=== PATIENT | female | born 1990 | race American Indian/Alaskan Native ===

== ENCOUNTER 2016-10-09 12:34 | Inpatient (IN) | payer MEDICAID ==
[2016-10-09] MEDS ORDERED: PEPCID IV ONE (12:45)
[2016-10-09] MEDS ORDERED: REGLAN IV ONE (12:45)
[2016-10-09] MEDS ORDERED: BICITRA PO ONE (12:45)
[2016-10-09] MEDS ORDERED: EMLA TP PRN (12:45)
--- NOTE | 2016-10-09 12:54 | History and Physical Report ---
History of Present Illness Date of examination: 10/09/16 Date of admission: 10/09/16 12:34 Chief complaint: pt presents for repeat c/s at 38 weeks secondary to oligo Past History Past Medical History: other (obesity) Past Surgical History: section (x1) [employer]INE[employer] History: herpes Family/Genetic History: diabetes, hypertension, stroke Social history: smoking (current use) - Obstetrical History Expected Date of Delivery: 10/22/16 Actual Gestation: 38 Week(s) 1 Day(s) : 2 Para: 1 Number of Living Children: 0 (hild of sids) Medications and Allergies Allergies Allergy/AdvReac Type Severity Reaction Status Date / Time latex Allergy Rash Verified 05/07/15 11:56 Home Medications Medication Instructions Recorded Confirmed Last Taken Type Pnv with Ca,No.71/Iron/FA 1 caplet PO DAILY 05/10/15 05/10/15 05/06/15 10:00 History [Vol-Plus Tablet] Ibuprofen [Motrin 800 MG tab] 800 mg PO Q6H PRN #30 tablet 05/11/15 Unknown Rx oxyCODONE /ACETAMINOPHEN [Percocet 2 tab PO Q4H PRN #30 tablet 05/11/15 Unknown Rx 5/325 mg] Active Meds: Active Medications Citric Acid/Sodium Citrate (Bicitra) 30 ml PO ONCE ONE Stop: 10/09/16 12:46 Famotidine (Pepcid) 20 mg IV ONCE ONE Stop: 10/09/16 12:46 Cefazolin Sodium (Ancef/Sterile Water 2 Gm/20 Ml) 2 gm in 20 mls @ 80 mls/hr IV PREOP NR PRN Reason: Protocol Lactated Ringer's (Lactated Ringers) 1,000 mls @ 2,250 mls/hr IV PREOP LA NENA Stop: 10/10/16 13:27 Oxytocin/Sodium Chloride (Pitocin/Ns 20 Unit/1000ml Drip) 20 units in 1,000 mls @ 0 mls/hr IV TITR LA NENA PRN Reason: As Directed Lidocaine/Prilocaine (Emla) 1 applic TP ONCE PRN PRN Reason: for muñiz catheter insertion Metoclopramide HCl (Reglan) 10 mg IV ONCE ONE Stop: 10/09/16 12:46 Review of Systems All systems: negative - Physical Exam Breasts: Positive: deferred Cardiovascular: Regular rate, Normal S1, Normal S2 Abdomen: Positive: normal appearance, soft, normal bowel sounds. Negative: distention, tenderness Vulva: both: normal Vagina: Positive: normal moisture. Negative: discharge Cervix: Negative: lesion, discharge Uterus: Positive: normal size, normal contour Adnexa: both: normal Anus/Rectum: Positive: normal perianal skin, heme negative. Negative: rectal mass, hemorrhoids Extremities: Deep Tendon Reflex Grade: Normal +2 - Obstetrical FHR: category 1 Uterine Contraction Monitor Mode: External Cervical Dilatation: 0 Cervical Effacement Percentage: 0 station: -3 Uterine Contraction Pattern: Absent Results All other labs normal. Assessment and Plan iup at term, oligo, previous c/s x 1, hx of HSV, previous child of SIDS Plan- prepare for repeat c/s
[2016-10-09] MEDS ORDERED: ANCEF/STERILE WATER 2 GM/20 ML 2 GM/20 ML SYRINGE IV NR (13:00)
[2016-10-09] MEDS ORDERED: PITOCin/NS 20 UNIT/1000ML DRIP 20 UNITS/1,000 ML BAG IV SCH ×2 (13:00→18:00)
[2016-10-09] MEDS ORDERED: LACTATED RINGERS 1,000 ML IV SCH (13:00)
--- NOTE | 2016-10-09 14:19 | Anesthesia Consultation ---
Anesthesia Consult and Med Hx Date of service: 10/09/16 - Airway Anesthetic Teeth Evaluation: Poor (broken tooth #27) ROM Head & Neck: Adequate Mental/Hyoid Distance: Adequate Mallampati Class: Class II Intubation Access Assessment: Probably Good - Pre-Operative Health Status ASA Pre-Surgery Classification: ASA3 Proposed Anesthetic Plan: Epidural, Spinal - Pulmonary Hx Asthma: No COPD: No Hx Pneumonia: No - Cardiovascular System Hx Hypertension: No - Central Nervous System Hx Seizures: No Hx Psychiatric Problems: No - Endocrine Hx Renal Disease: No Hx End Stage Renal Disease: No Hx Hypothyroidism: No Hx Hyperthyroidism: No - Hematic Hx Anemia: No Hx Sickle Cell Disease: No - Other Systems Hx Alcohol Use: No Hx Obesity: Yes (morbid obesity BMI 47.8)
[2016-10-09] MEDS ORDERED: BENADRYL IV PRN (14:20)
[2016-10-09] MEDS ORDERED: NARCAN 0.4 MG/1 ML IV PRN ×2 (14:20→17:43)
[2016-10-09] MEDS ORDERED: DILAUDID IV PRN (14:20)
[2016-10-09] MEDS ORDERED: ZOFRAN IV PRN ×2 (14:20→17:43)
[2016-10-09] MEDS ORDERED: PHENERGAN PR PRN (14:20)
[2016-10-09] MEDS ORDERED: PHENERGAN PO PRN (14:20)
--- NOTE | 2016-10-09 14:20 | Anesthesia Day of Surgery ---
Anesthesia Day of Surgery - Day of Surgery Patient Examined: Yes Patient H&P Reviewed: Yes Patient is NPO: Yes (had cup of coffee @9:45)
[2016-10-09] MEDS ORDERED: TORADOL IV PRN (14:21)
[2016-10-09 14:47] LABS: Basophils % (Auto) 0.6 % (0.0-1.8); Eosinophils % (Auto) 1.5 % (0.0-4.3); Hematocrit 36.7 % (30.3-42.9); Mean Corpuscular HGB Conc 33 % (30-34); Mean Corpuscular Hemoglobin 28 pg (28-32); Mean Corpuscular Volume 85 fl (79-97); Platelet Count 408 K/mm3 (140-440); Red Blood Count 4.34 M/mm3 (3.65-5.03); Red Cell Distribution Width 14.2 % (13.2-15.2); White Blood Count 17.5 K/mm3 (4.5-11.0)
[2016-10-09] MEDS ORDERED: SODIUM CHLORIDE FLUSH SYRINGE 10 ML IV NR (15:00)
[2016-10-09] MEDS ORDERED: NACL 0.9% IR ONE (15:20)
[2016-10-09] MEDS ORDERED: WATER FOR IRRIG STERILE IR ONE (15:20)
[2016-10-09] MEDS ORDERED: MORPHINE ONE (15:21)
[2016-10-09] MEDS ORDERED: NACL 0.9% 1000 ML 1,000 ML ONE (16:01)
[2016-10-09] MEDS ORDERED: NEO SYNEPHRINE/NS Syringe(OR USE) IV ONE ×2 (16:21)
[2016-10-09] MEDS ORDERED: ZOFRAN ONE (16:31)
--- NOTE | 2016-10-09 17:38 | Procedure Note ---
OB Delivery Note - Delivery Date of Delivery: 10/09/16 Surgeon: CRISTEL RUSSELL Estimated blood loss: other (600ml) - Infant A at 1 minute: 8 at 5 minutes: 9 Gender: Female (5-12, infant and mother tolerated the procedure well.)
[2016-10-09] MEDS ORDERED: TUCKS PAD TP PRN (17:43)
[2016-10-09] MEDS ORDERED: LANSINOH TP PRN (17:43)
[2016-10-09] MEDS ORDERED: MYLICON PO PRN (17:43)
[2016-10-09] MEDS ORDERED: MILK OF MAGNESIA PO PRN (17:43)
--- NOTE | 2016-10-09 17:43 | Operative Report ---
Operative Report Operative Report: Preoperative diagnoses- Intrauterine at 38 + weeks, oligo, previous c/ s x1 Postoperative diagnoses- same Procedure- Repeat low segment transverse section Surgeon- Dr. Tory Samaniego-[place] Anesthesia- epidural] Findings- live female wt 5-12, apgars 8 & 9, loose nuchal cord Estimated blood loss- 600ml Complications- none Instrument count- Correct Pathology specimens- Placenta- to pathology Patient was taken to the OR. Spinal/epidural anesthesia was instituted. Patient was then placed in the dorsolithotomy position and Clifton catheter was placed. Patient was then returned to the supine position and prepped and draped in usual sterile fashion. Level of anesthesia was checked and found to be adequate. Pfannenstiel skin incision was made. The incision was extended through the subcutaneous tissues to the fascia. Which was incised transversely using Mayos and pickups with teeth. The fascia was from the underlying muscle using Kochers and Bovie cautery. The rectus muscle was then in the midline. The peritoneum was visualized, grasped with hemostats and opened using the Metzenbaum scissors. Upon entering the peritoneal cavity an blessing retractor was placed appropriately. A curvilinear incision was made with Metzenbaum scissors and a smooth pickup. A bladder flap was developed, a curvilinear incision was made in the lower uterine segment using a scalpel. The uterine cavity was entered bluntly with the surgeon's finger and the incision was enlarged. The Head of the infant was delivered . The mouth and nose were suctioned and the remainder of the body was delivered . The cord was doubly clamped and cut . was given to the waiting team. The cord blood was obtained. The placenta was then delivered manually. The uterus is cleaned with a moist wet lap tape. The first layer of the uterus is closed with 0 Vicryl running interlocking stitch. The second layer of the uterus was closed with a 0 Vicryl horizontal imbricating stitch. The pelvic gutters were cleaned . Next the adnexa were examined and found to be normal. Next the fascia was closed with 0 Vicryl running suture. Next the subcutaneous tissue was reapproximated with 3-0 Vicryl running suture. The skin was reapproximated with a 4-0 Vicryl subcuticular stitch. Mastisol and Steri-Strips were placed . A pressure dressing was applied. The patient was transferred to recovery room in stable condition.
[2016-10-09] MEDS ORDERED: D5LR 1,000 ML IV SCH (18:00)
[2016-10-09] MEDS ORDERED: SODIUM CHLORIDE FLUSH SYRINGE 10 ML IV SCH (18:00)
--- NOTE | 2016-10-09 19:27 | Post Anesthesia Evaluation ---
- Post Anesthesia Evaluation Patient Participated: Yes Airway Patent: Yes Stable Respiratory Function: Yes Nausea/Vomiting: No Temp > 96.8F: Yes Pain Manageable: Yes Adequeate Hydration: Yes Anesthesia Complications: No Block Receding Appropriately: Not Applicable Patient on Ventilator: No
[2016-10-09] MEDS: ANCEF/NS 1 GM/50 ML 1 GM/50 ML BAG IV SCH (22:10)
[2016-10-09] MEDS: FEOSOL PO SCH (22:25)
[2016-10-10] MEDS: ANCEF/NS 1 GM/50 ML 1 GM/50 ML BAG IV SCH (05:28)
--- NOTE | 2016-10-10 06:50 | Progress Note ---
Assessment and Plan pod 1 s/p repeat c/s. doing well. encourage ambulation Subjective - Subjective Date of service: 10/10/16 Principal diagnosis: pod 1 s/p repeat c/s Interval history: routine post op care Patient reports: appetite normal, voiding normally, pain well controlled : doing well Objective - Vital Signs Latest vital signs: Vital Signs Temp Pulse Pulse Resp BP BP Pulse Ox 10/10/16 04:00 98.6 F 79 22 104/69 10/10/16 00:00 98.6 F 88 22 114/76 10/09/16 22:25 18 10/09/16 18:10 97.8 F 59 L 12 99/52 99 10/09/16 17:51 72 12 108/53 99 10/09/16 17:35 72 14 107/58 100 10/09/16 17:30 69 10 L 111/56 98 10/09/16 17:25 74 12 106/53 98 10/09/16 17:23 98.2 F 66 12 102/56 100 10/09/16 13:14 87 99 10/09/16 13:13 76 120/59 10/09/16 07:35 98.6 F 62 24 96/47 Intake and Output 10/09/16 10/09/16 10/10/16 14:59 22:59 06:59 Intake Total 6250 2100 Output Total 500 800 Balance 5750 1300 Intake: IV 6250 750 ANCEF/NS 1 GM/50 ML 1 gm 100 In 50 ml @ 100 mls/hr IV Q8H LA NENA Rx#:[id number] D5lr 1,000 ml @ 125 mls/ 1500 750 hr IV DIRECT LA NENA Rx#: [id number] PITOCin/NS 20 UNIT/1000ML 2250 DRIP 20 units In 1,000 ml @ 250 mls/hr IV TITR LA NENA Rx#:[id number] Oral 600 Intake, Free Water 750 Output: Urine 500 800 Indwelling Catheter 800 Other: Total, Intake Amount 300 Total, Output Amount 800 Weight 134.263 kg Estimated Blood Loss 600 Patient Weight 10/10/16 06:59 Weight 134.263 kg - Exam Breasts: Present: deferred Cardiovascular: Present: Regular rate, Normal S1, Normal S2 Lungs: Present: Clear to auscultation Abdomen: Present: normal appearance, soft Vulva: both: normal Uterus: Present: normal, firm Extremities: Present: normal Incision: Present: normal, dry, intact - Labs Labs: Abnormal lab results 10/09/16 Range/Units 13:15 WBC 17.5 H (4.5-11.0) K/mm3 [place] # 1.1 H (0.0-0.8) K/mm3 Seg Neutrophils % 74.1 H (40.0-70.0) % Seg Neutrophils # 12.9 H (1.8-7.7) K/mm3
[2016-10-10 07:00] LABS: Hemoglobin 10.2 gm/dl (10.1-14.3)
[2016-10-10] MEDS: MOTRIN PO PRN (08:35)
[2016-10-10] MEDS: PERCOCET 5/325 PO PRN ×3 (08:35→21:38)
[2016-10-10] MEDS: FEOSOL PO SCH ×2 (08:36→21:38)
--- NOTE | 2016-10-10 10:52 | Progress Note ---
Subjective Date of service: 10/10/16 Principal diagnosis: pod 1 s/p repeat c/s Interval history: 1st POD after Patient is comfortable. Pain is very well under control. Ambulated well. No residual neurological deficit. No nausea or vomiting. No anesthesia complications Objective - Constitutional Vitals: Vital Signs - 12hr 10/10/16 10/10/16 10/10/16 00:00 04:00 08:15 Temperature 98.6 F 98.6 F 98.0 F Pulse Rate [ 88 79 64 Left] Respiratory 22 22 20 Rate Blood Pressure 114/76 104/69 98/48 [Left Arm] - Labs CBC & Chem 7: 10/10/16 06:42 Labs: Abnormal lab results 10/09/16 Range/Units 13:15 WBC 17.5 H (4.5-11.0) K/mm3 [place] # 1.1 H (0.0-0.8) K/mm3 Seg Neutrophils % 74.1 H (40.0-70.0) % Seg Neutrophils # 12.9 H (1.8-7.7) K/mm3
[2016-10-10] MEDS ORDERED: M-M-R II VACCINE SUB-Q ONE (17:45)
[2016-10-11] MEDS: PERCOCET 5/325 PO PRN (01:28)
--- NOTE | 2016-10-11 09:13 | Progress Note ---
Assessment and Plan POD 2 s/p repeat c/s . Doing well. Will D/c home tomorrow Subjective - Subjective Date of service: 10/11/16 Principal diagnosis: pod 2 s/p repeat c/s Interval history: routine post op care Patient reports: appetite normal, voiding normally, pain well controlled [place]: doing well Objective - Vital Signs Latest vital signs: Vital Signs Temp Pulse Resp BP 10/10/16 23:25 98.6 F 88 22 109/68 10/10/16 19:45 98.6 F 82 16 104/69 10/10/16 16:05 97.7 F 72 20 96/54 10/10/16 11:18 97.9 F 72 20 100/56 Intake and Output 10/10/16 10/11/16 10/11/16 22:59 06:59 14:59 Intake Total 960 550 Output Total 1000 Balance -40 550 Intake: Oral 360 300 Intake, Free Water 600 250 Output: Urine 1000 Void 1000 Other: Total, Intake Amount 120 300 Total, Output Amount 600 - Exam Breasts: Present: deferred Cardiovascular: Present: Regular rate, Normal S1, Normal S2 Lungs: Present: Clear to auscultation Abdomen: Present: normal appearance, soft Vulva: both: normal Uterus: Present: normal, firm Extremities: Present: normal Deep Tendon Reflex Grade: Normal +2 Incision: Present: normal, dry, intact
--- NOTE | 2016-10-11 09:18 | Discharge Summary ---
Providers - Providers Date of Admission: 10/09/16 12:34 Date of discharge: 10/12/16 Attending physician: CRISTEL RUSSELL Primary care physician: CRISTEL RUSSELL Hospitalization Reason for admission: section (previous c/s x1), other ( oligohydramniois) Delivery: Procedure: section, repeat low transverse Procedure details: repeat lgsil= delivery of female infant Episiotomy: none Laceration: none Incision: normal, dry, intact Other procedures: none complications: none Discharge diagnosis: IUP at term delivered baby: female Hospital course: routine post op course. Mild anemia noted after delivery - iron started Condition at discharge: Good Disposition: DISCHARGED TO HOME OR SELFCARE - Discharge Diagnoses (1) Status post repeat low transverse section Status: Acute (2) Oligohydramnios Status: Acute Qualifiers: Fetus number: F Trimester: T Plan - Discharge Medications Prescriptions: Ferrous Sulfate [Feosol 325 MG tab] 325 mg PO BID #60 tablet Ibuprofen [Motrin 800 MG tab] 800 mg PO Q8HR PRN #30 tablet PRN Reason: Pain oxyCODONE /ACETAMINOPHEN [Percocet 5/325] 1 tab PO Q6HR PRN #30 tablet PRN Reason: Pain - Provider Discharge Summary Activity: routine, no sex for 6 weeks, no heavy lifting 4 weeks, no strenuous exercise Diet: routine Instructions: routine Additional instructions: [] Smoking cessation referral if applicable(refer to patient education folder for contact #) [] Refer to [facility] Booklet Call your doctor immediately for: * Fever > 100.5 * Heavy vaginal bleeding ( >1 pad per hour) * Severe persistent headache * Shortness of breath * Reddened, hot, painful area to leg or breast * Drainage or odor from incision. * Keep incision clean and dry at all times and follow doctor's instructions regarding bathing/showering - Follow up plan Follow up: CRISTEL RUSSELL MD [Primary Care Provider] - 10/18/16 10:00 am
[2016-10-11] MEDS: MOTRIN PO PRN (16:20)
[2016-10-11] MEDS: FEOSOL PO SCH (16:57)
[2016-10-11 17:13] VITALS: BP 110/54
== END 2016-10-11 17:00 | disposition home or self-care (01) | DRG 765 ==
LOC: APU 12:34 → OB 19:09
PROVIDERS: ADMIT Specialist; ATTEND Specialist
PROC: 10D00Z1 Extraction of Products of Conception, Low, Open Approach (ICD-10-PCS; principal; 2016-10-09)
DX: O34.211 Maternal care for low transverse scar from previous cesarean delivery (principal); O41.03X0 Oligohydramnios, third trimester, not applicable or unspecified; Z68.42 Body mass index [BMI] 45.0-49.9, adult; O69.81X0 Labor and delivery complicated by cord around neck, without compression, not applicable or unspecified; Z88.3 Allergy status to other anti-infective agents; E66.01 Morbid (severe) obesity due to excess calories; O99.214 Obesity complicating childbirth; O99.334 Smoking (tobacco) complicating childbirth; Z3A.38 38 weeks gestation of pregnancy; Z37.0 Single live birth; Z91.040 Latex allergy status; Z82.49 Family history of ischemic heart disease and other diseases of the circulatory system; Z82.3 Family history of stroke
CPT/HCPCS: 36415; 85014; 85018; 85025; 86850; 86900; 86901; 88307; 99211; 99406; G0463; J0690; J1885; J2270; J2370; J2405; J2590; J2765; J7030; J7120; J7121